=== PATIENT | female | born 1965 | race Caucasian/White ===

== ENCOUNTER 2021-04-18 10:54 | Inpatient (IN) | payer OTHER ==
[2021-04-18 12:17] VITALS: BMI 41.1
[2021-04-18] MEDS ORDERED: MAGNESIUM HYDROX 2400MG/30ML ORAL SUSPENSION 30 ML CUP PO PRN (13:03)
[2021-04-18] MEDS ORDERED: BISMUTH SUBSALICYLATE 524 MG/30 ML PO PRN (13:03)
[2021-04-18] MEDS ORDERED: ONDANSETRON *ODT* 4 MG TABLET SL PRN (13:03)
[2021-04-18] MEDS ORDERED: MAG HYDROX/AL HYDROX/SIMETH 30 ML UNIT-DOSE CUP PO PRN (13:03)
[2021-04-18] MEDS ORDERED: NICOTINE 10 MG CARTRIDGE (INHALER) IH PRN (13:03)
[2021-04-18] MEDS ORDERED: ACETAMINOPHEN 325 MG TABLET (FP) PO PRN ×2 (13:03)
[2021-04-18] MEDS ORDERED: MENTHOL/PHENOL 1 EACH UD MM PRN (13:03)
[2021-04-18] MEDS ORDERED: MAGNESIUM CITRATE 300 ML BOTTLE PO PRN (13:03)
[2021-04-18] MEDS: diazePAM 5 MG TABLET PO PRN (15:04)
[2021-04-18] MEDS: hydrOXYzine PAMOATE 25 MG CAPSULE (FP) PO SCH ×3 (15:05→22:10)
[2021-04-18] MEDS: diazePAM 5 MG TABLET PO SCH ×2 (17:58→22:08)
[2021-04-18] MEDS: traZODone HCL 100 MG TABLET (FP) PO SCH (22:08)
[2021-04-18] MEDS: THIAMINE HCL 100 MG TABLET (FP) PO SCH (22:08)
[2021-04-18] MEDS: busPIRone HCL 10 MG TABLET (FP) PO SCH (22:10)
[2021-04-18] MEDS: MELATONIN 5 MG TABLETS PO SCH (22:10)
[2021-04-19] MEDS: diazePAM 5 MG TABLET PO SCH ×4 (05:43→22:35)
[2021-04-19] MEDS: hydrOXYzine PAMOATE 25 MG CAPSULE (FP) PO SCH ×5 (05:43→22:34)
[2021-04-19] MEDS ORDERED: SERTRALINE HCL 50 MG TABLET (FP) PO SCH (10:00)
[2021-04-19] MEDS ORDERED: methaDONE HCL 10 MG TABLET PO SCH (10:15)
[2021-04-19] MEDS: PRENATAL VITAMINS W/ FOLIC ACID TABLET (FP) PO SCH (11:16)
[2021-04-19] MEDS: SERTRALINE HCL 50 MG TABLET (FP) PO SCH (11:16)
[2021-04-19] MEDS ORDERED: methaDONE HCL 10 MG TABLET ONE (11:28)
[2021-04-19] MEDS ORDERED: methaDONE HCL 40 MG DISPERSABLE TABLET ONE (11:29)
[2021-04-19 12:42] LABS: BLOOD UREA NITROGEN 25.7 mg/dL (7-18)
[2021-04-19 12:43] LABS: CALCIUM 9.9 mg/dL (8.5-10.1)
[2021-04-19 12:44] LABS: ALBUMIN 3.9 g/dl (3.4-5.0)
[2021-04-19 12:47] LABS: BILIRUBIN,TOTAL 0.2 mg/dL (0.2-1); CREATININE 1.5 mg/dL (0.55-1.3); TOT PROT 7.5 g/dl (6.4-8.2)
[2021-04-19] MEDS: METHOCARBAMOL 500 MG TABLET PO PRN ×2 (12:50→22:38)
[2021-04-19 13:16] LABS: HEMOGLOBIN 11.7 GM/dL (10.7-15.3); MCH 30.1 pg (25.7-33.7); MCHC 33.4 g/dl (32.0-36.0); MEAN CELL VOLUME 89.9 fl (80-96); MEAN PLT VOLUME 9.5 fl (7.5-11.1); PLATELET COUNT 339 10^3/uL (134-434); RBC 3.89 M/mm3 (3.60-5.2); RDW 14.6 % (11.6-15.6); WHITE BLOOD COUNT 7.9 K/mm3 (4.0-10.0)
[2021-04-19] MEDS: busPIRone HCL 10 MG TABLET (FP) PO SCH (17:06)
[2021-04-19] MEDS: traZODone HCL 100 MG TABLET (FP) PO SCH (22:34)
[2021-04-19] MEDS: THIAMINE HCL 100 MG TABLET (FP) PO SCH (22:34)
[2021-04-19] MEDS: MELATONIN 5 MG TABLETS PO SCH (22:35)
[2021-04-20] MEDS: busPIRone HCL 10 MG TABLET (FP) PO SCH ×3 (02:09→22:01)
[2021-04-20] MEDS ORDERED: methaDONE HCL 10 MG TABLET ONE (04:20)
[2021-04-20] MEDS ORDERED: methaDONE HCL 40 MG DISPERSABLE TABLET ONE (04:21)
[2021-04-20] MEDS: diazePAM 5 MG TABLET PO SCH ×3 (05:54→22:01)
[2021-04-20] MEDS: hydrOXYzine PAMOATE 25 MG CAPSULE (FP) PO SCH ×5 (05:54→22:02)
[2021-04-20] MEDS: PRENATAL VITAMINS W/ FOLIC ACID TABLET (FP) PO SCH (10:30)
[2021-04-20] MEDS: SERTRALINE HCL 50 MG TABLET (FP) PO SCH (10:30)
[2021-04-20] MEDS: diazePAM 5 MG TABLET PO PRN (10:32)
[2021-04-20] MEDS: THIAMINE HCL 100 MG TABLET (FP) PO SCH (22:02)
[2021-04-20] MEDS: traZODone HCL 100 MG TABLET (FP) PO SCH (22:02)
[2021-04-20] MEDS: IBUPROFEN 400 MG TABLET (FP) PO PRN (22:03)
[2021-04-20] MEDS: MELATONIN 5 MG TABLETS PO SCH (22:46)
[2021-04-21] MEDS ORDERED: methaDONE HCL 10 MG TABLET ONE (04:04)
[2021-04-21] MEDS ORDERED: methaDONE HCL 40 MG DISPERSABLE TABLET ONE (04:04)
[2021-04-21] MEDS: diazePAM 5 MG TABLET PO SCH ×2 (06:12→18:54)
[2021-04-21] MEDS: hydrOXYzine PAMOATE 25 MG CAPSULE (FP) PO SCH ×5 (06:12→22:54)
[2021-04-21] MEDS: busPIRone HCL 10 MG TABLET (FP) PO SCH ×2 (10:08→23:50)
[2021-04-21] MEDS: SERTRALINE HCL 50 MG TABLET (FP) PO SCH (10:09)
[2021-04-21] MEDS: PRENATAL VITAMINS W/ FOLIC ACID TABLET (FP) PO SCH (10:09)
[2021-04-21 10:17] LABS: BLOOD UREA NITROGEN 14.5 mg/dL (7-18)
[2021-04-21] MEDS: METHOCARBAMOL 500 MG TABLET PO PRN (18:57)
[2021-04-21] MEDS ORDERED: LIDOCAINE PATCH REMOVAL MC SCH (22:00)
[2021-04-21] MEDS: traZODone HCL 100 MG TABLET (FP) PO SCH (22:52)
[2021-04-21] MEDS: MELATONIN 5 MG TABLETS PO SCH (22:53)
[2021-04-21] MEDS: THIAMINE HCL 100 MG TABLET (FP) PO SCH (22:54)
[2021-04-22] MEDS ORDERED: methaDONE HCL 10 MG TABLET ONE (04:12)
[2021-04-22] MEDS ORDERED: methaDONE HCL 40 MG DISPERSABLE TABLET ONE (04:13)
[2021-04-22] MEDS: IBUPROFEN 400 MG TABLET (FP) PO PRN (05:30)
[2021-04-22] MEDS: hydrOXYzine PAMOATE 25 MG CAPSULE (FP) PO SCH ×2 (05:30→10:15)
[2021-04-22] MEDS ORDERED: diazePAM 5 MG TABLET PO ONE (06:00)
[2021-04-22] MEDS ORDERED: LIDOCAINE 5% TOPICAL PATCH TP SCH (10:00)
[2021-04-22] MEDS: PRENATAL VITAMINS W/ FOLIC ACID TABLET (FP) PO SCH (10:15)
[2021-04-22] MEDS: METHOCARBAMOL 500 MG TABLET PO PRN (10:15)
[2021-04-22] MEDS: busPIRone HCL 10 MG TABLET (FP) PO SCH (10:15)
[2021-04-22] MEDS: SERTRALINE HCL 50 MG TABLET (FP) PO SCH (10:15)
[2021-04-22 12:57] VITALS: BP 148/73; PULSE 77; TEMP 97.2
== END 2021-04-22 13:57 | disposition home or self-care (01) | DRG 773 ==
LOC: YASAS 10:54 → Y6N 13:49
PROVIDERS: ADMIT Allergy & Immunology; ATTEND Allergy & Immunology
PROC: HZ2ZZZZ Detoxification Services for Substance Abuse Treatment (ICD-10-PCS; principal; 2021-04-17)
DX: F13.230 Sedative, hypnotic or anxiolytic dependence with withdrawal, uncomplicated (principal); F11.20 Opioid dependence, uncomplicated; F34.1 Dysthymic disorder; F19.24 Other psychoactive substance dependence with psychoactive substance-induced mood disorder; F19.282 Other psychoactive substance dependence with psychoactive substance-induced sleep disorder; L40.9 Psoriasis, unspecified; R73.09 Other abnormal glucose; R74.01 Elevation of levels of liver transaminase levels; E03.9 Hypothyroidism, unspecified; J45.909 Unspecified asthma, uncomplicated; E66.9 Obesity, unspecified; Z68.41 Body mass index [BMI] 40.0-44.9, adult; Z56.0 Unemployment, unspecified
CPT/HCPCS: 36415; 80053; 81025; 82565; 82962; 84520; 85027; 86780; 93005; 93010; C9803; U0003; U0005

== ENCOUNTER 2022-03-22 12:41 | Inpatient (IN) | payer OTHER ==
[2022-03-22 14:28] VITALS: BMI 35.4
[2022-03-22] MEDS ORDERED: ACETAMINOPHEN 325 MG TABLET (FP) PO PRN ×2 (14:56)
[2022-03-22] MEDS ORDERED: MAG HYDROX/AL HYDROX/SIMETH 30 ML UNIT-DOSE CUP PO PRN (14:56)
[2022-03-22] MEDS ORDERED: NALOXONE HCL (KLOXXADO) 8 MG SPRAY NS PRN (14:56)
[2022-03-22] MEDS ORDERED: MAGNESIUM HYDROX 2400MG/30ML ORAL SUSPENSION 30 ML CUP PO PRN (14:56)
[2022-03-22] MEDS ORDERED: BISMUTH SUBSALICYLATE 524 MG/30 ML PO PRN (14:56)
[2022-03-22] MEDS ORDERED: POLYETHYLENE GLYCOL (HEALTHYLAX) 3350 17 GM PACKET PO PRN (14:56)
[2022-03-22] MEDS ORDERED: LOPERAMIDE HCL 2 MG CAPSULE PO PRN (14:56)
[2022-03-22] MEDS ORDERED: IBUPROFEN 600 MG TABLET (FP) PO PRN (14:56)
[2022-03-22] MEDS ORDERED: IBUPROFEN 400 MG TABLET (FP) PO PRN (14:56)
[2022-03-22] MEDS ORDERED: ONDANSETRON *ODT* 4 MG TABLET SL PRN (14:56)
[2022-03-22] MEDS ORDERED: DICYCLOMINE HCL 10 MG CAPSULE PO PRN (14:56)
[2022-03-22] MEDS ORDERED: BENZOCAINE/MENTHOL (CHLORASEPTIC ) LOZENGE MM PRN (14:56)
[2022-03-22] MEDS ORDERED: AMMONIUM LACTATE 12% LOTION 225 GM BOTTLE TP PRN (15:02)
[2022-03-22] MEDS ORDERED: ALBUTEROL SO4 HFA INHALER IH PRN (15:55)
[2022-03-22] MEDS: diazePAM 5 MG TABLET PO SCH (18:03)
[2022-03-22] MEDS: hydrOXYzine PAMOATE 25 MG CAPSULE (FP) PO PRN ×2 (18:03→22:19)
[2022-03-22] MEDS: METHOCARBAMOL 500 MG TABLET PO PRN (18:04)
[2022-03-22] MEDS: THIAMINE HCL 100 MG TABLET (FP) PO SCH (22:19)
[2022-03-22] MEDS: GABAPENTIN 100 MG CAPSULE PO SCH (22:19)
[2022-03-22] MEDS: MONTELUKAST NA 10 MG TABLET PO SCH (22:19)
[2022-03-22] MEDS: NYSTATIN 100,000 UNIT/GM TOPICAL CREAM 15 GM TUBE TP SCH (22:19)
[2022-03-22] MEDS: ATORVASTATIN CA 20 MG TABLET (FP) PO SCH (22:19)
[2022-03-22] MEDS: MELATONIN 5 MG TABLETS PO SCH (22:19)
[2022-03-23] MEDS: diazePAM 5 MG TABLET PO SCH ×5 (00:58→22:06)
[2022-03-23] MEDS: GABAPENTIN 100 MG CAPSULE PO SCH ×3 (05:39→22:05)
[2022-03-23] MEDS ORDERED: methaDONE HCL 10 MG TABLET PO ONE (06:00)
[2022-03-23] MEDS ORDERED: methaDONE 40 MG, methaDONE 30 MG PO ONE (06:00)
[2022-03-23] MEDS: METHOCARBAMOL 500 MG TABLET PO PRN (10:29)
[2022-03-23] MEDS: PRENATAL VITAMINS W/ FOLIC ACID TABLET (FP) PO SCH (10:29)
[2022-03-23] MEDS: NYSTATIN 100,000 UNIT/GM TOPICAL CREAM 15 GM TUBE TP SCH ×2 (11:08→22:10)
[2022-03-23] MEDS: SERTRALINE HCL 50 MG TABLET (FP) PO SCH (11:59)
[2022-03-23 12:28] LABS: ALBUMIN 2.9 g/dl (3.4-5.0); BLOOD UREA NITROGEN 30.1 mg/dL (7-18); CALCIUM 8.6 mg/dL (8.5-10.1)
[2022-03-23 12:31] LABS: CREATININE 1.6 mg/dL (0.55-1.3)
[2022-03-23 12:33] LABS: BILIRUBIN,TOTAL 0.2 mg/dL (0.2-1); TOT PROT 6.4 g/dl (6.4-8.2)
[2022-03-23 12:41] LABS: HEMATOCRIT 30.9 % (32.4-45.2); HEMOGLOBIN 9.7 GM/dL (10.7-15.3); MCHC 31.4 g/dl (32.0-36.0); MEAN CELL VOLUME 89.1 fl (80-96); MEAN PLT VOLUME 8.6 fl (7.5-11.1); PLATELET COUNT 357 10^3/uL (134-434); RBC 3.47 M/mm3 (3.60-5.2); RDW 14.8 % (11.6-15.6); WHITE BLOOD COUNT 7.9 K/mm3 (4.0-10.0)
[2022-03-23] MEDS: diazePAM 5 MG TABLET PO PRN ×2 (14:02→20:21)
[2022-03-23] MEDS: hydrOXYzine PAMOATE 25 MG CAPSULE (FP) PO PRN (17:48)
[2022-03-23] MEDS: THIAMINE HCL 100 MG TABLET (FP) PO SCH (22:05)
[2022-03-23] MEDS: MELATONIN 5 MG TABLETS PO SCH (22:05)
[2022-03-23] MEDS: MONTELUKAST NA 10 MG TABLET PO SCH (22:05)
[2022-03-23] MEDS: traZODone HCL 100 MG TABLET (FP) PO SCH (22:05)
[2022-03-23] MEDS: ATORVASTATIN CA 20 MG TABLET (FP) PO SCH (22:06)
[2022-03-24] MEDS: GABAPENTIN 100 MG CAPSULE PO SCH ×3 (05:40→22:11)
[2022-03-24] MEDS: diazePAM 5 MG TABLET PO SCH ×3 (05:41→22:12)
[2022-03-24] MEDS ORDERED: methaDONE HCL 10 MG TABLET PO ONE (09:13)
[2022-03-24] MEDS ORDERED: methaDONE 40 MG, methaDONE 30 MG PO ONE (09:30)
[2022-03-24] MEDS: diazePAM 5 MG TABLET PO PRN ×2 (10:08→17:17)
[2022-03-24] MEDS: SERTRALINE HCL 50 MG TABLET (FP) PO SCH (10:08)
[2022-03-24] MEDS: NYSTATIN 100,000 UNIT/GM TOPICAL CREAM 15 GM TUBE TP SCH ×2 (10:09→22:12)
[2022-03-24] MEDS: PRENATAL VITAMINS W/ FOLIC ACID TABLET (FP) PO SCH (10:09)
[2022-03-24] MEDS: PATIENT'S OWN MEDICATION (NON-FORMULARY) (Fluticasone Furoate [Arnuity Ellipta] 100 MCG Bl IH SCH ×2 (10:21→10:37)
[2022-03-24] MEDS: FERROUS SO4 325 MG TABLET (FP) PO SCH (17:17)
[2022-03-24] MEDS: MELATONIN 5 MG TABLETS PO SCH (22:11)
[2022-03-24] MEDS: ATORVASTATIN CA 20 MG TABLET (FP) PO SCH (22:11)
[2022-03-24] MEDS: MONTELUKAST NA 10 MG TABLET PO SCH (22:11)
[2022-03-24] MEDS: traZODone HCL 100 MG TABLET (FP) PO SCH (22:11)
[2022-03-24] MEDS: hydrOXYzine PAMOATE 25 MG CAPSULE (FP) PO PRN (22:11)
[2022-03-24] MEDS: THIAMINE HCL 100 MG TABLET (FP) PO SCH (22:12)
[2022-03-25] MEDS: methaDONE 40 MG, methaDONE 30 MG PO SCH (05:41)
[2022-03-25] MEDS: GABAPENTIN 100 MG CAPSULE PO SCH ×3 (05:42→22:11)
[2022-03-25] MEDS: diazePAM 5 MG TABLET PO SCH ×2 (05:44→17:05)
[2022-03-25] MEDS ORDERED: methaDONE HCL 40 MG DISPERSABLE TABLET PO SCH (06:00)
[2022-03-25] MEDS: FERROUS SO4 325 MG TABLET (FP) PO SCH ×3 (07:11→17:04)
[2022-03-25] MEDS: PRENATAL VITAMINS W/ FOLIC ACID TABLET (FP) PO SCH (10:10)
[2022-03-25] MEDS: SERTRALINE HCL 50 MG TABLET (FP) PO SCH (10:10)
[2022-03-25] MEDS: PATIENT'S OWN MEDICATION (NON-FORMULARY) (Fluticasone Furoate [Arnuity Ellipta] 100 MCG Bl IH SCH (10:11)
[2022-03-25] MEDS: NYSTATIN 100,000 UNIT/GM TOPICAL CREAM 15 GM TUBE TP SCH ×2 (10:11→22:11)
[2022-03-25] MEDS: diazePAM 5 MG TABLET PO PRN ×2 (10:12→14:04)
[2022-03-25] MEDS: METHOCARBAMOL 500 MG TABLET PO PRN ×2 (14:05→22:11)
[2022-03-25] MEDS: THIAMINE HCL 100 MG TABLET (FP) PO SCH (22:11)
[2022-03-25] MEDS: ATORVASTATIN CA 20 MG TABLET (FP) PO SCH (22:11)
[2022-03-25] MEDS: traZODone HCL 100 MG TABLET (FP) PO SCH (22:11)
[2022-03-25] MEDS: MELATONIN 5 MG TABLETS PO SCH (22:11)
[2022-03-25] MEDS: MONTELUKAST NA 10 MG TABLET PO SCH (22:11)
[2022-03-26] MEDS: methaDONE 40 MG, methaDONE 30 MG PO SCH (05:26)
[2022-03-26] MEDS: GABAPENTIN 100 MG CAPSULE PO SCH ×2 (05:27→13:05)
[2022-03-26] MEDS ORDERED: diazePAM 5 MG TABLET PO ONE (06:00)
[2022-03-26] MEDS: FERROUS SO4 325 MG TABLET (FP) PO SCH ×2 (07:38→12:04)
[2022-03-26] MEDS: NYSTATIN 100,000 UNIT/GM TOPICAL CREAM 15 GM TUBE TP SCH (09:34)
[2022-03-26] MEDS: SERTRALINE HCL 50 MG TABLET (FP) PO SCH (09:34)
[2022-03-26] MEDS: PRENATAL VITAMINS W/ FOLIC ACID TABLET (FP) PO SCH (09:34)
[2022-03-26] MEDS: PATIENT'S OWN MEDICATION (NON-FORMULARY) (Fluticasone Furoate [Arnuity Ellipta] 100 MCG Bl IH SCH (09:34)
[2022-03-26] MEDS: METHOCARBAMOL 500 MG TABLET PO PRN (09:38)
[2022-03-26] MEDS: hydrOXYzine PAMOATE 25 MG CAPSULE (FP) PO PRN (12:27)
[2022-03-26 13:50] VITALS: BP 145/87; PULSE 81; RESP 19; TEMP 96.9
== END 2022-03-26 14:04 | disposition home or self-care (01) | DRG 773 ==
LOC: YASAS 12:41 → Y6N 15:46
PROVIDERS: ADMIT Allergy & Immunology; ATTEND Surgery
PROC: HZ2ZZZZ Detoxification Services for Substance Abuse Treatment (ICD-10-PCS; principal; 2022-03-22)
DX: F13.230 Sedative, hypnotic or anxiolytic dependence with withdrawal, uncomplicated (principal); F11.20 Opioid dependence, uncomplicated; F31.9 Bipolar disorder, unspecified; F34.1 Dysthymic disorder; J44.9 Chronic obstructive pulmonary disease, unspecified; L40.9 Psoriasis, unspecified; B36.8 Other specified superficial mycoses
CPT/HCPCS: 36415; 80053; 85027; 86780; 87811; C9803-CS; U0003; U0005